=== PATIENT | female | born 1960 | race Caucasian/White ===

== ENCOUNTER 2023-06-11 04:00 | Emergency (ER) | payer MEDICARE, MEDICAID ==
[~2023-06-11] VITALS: Ht 162.6 cm; Wt 108.2 kg
[2023-06-11 04:09] VITALS: TEMP 98.2
[2023-06-11] MEDS ORDERED: Mag/Al Hydrox/Simeth Susp 30 ML CUP PO ONE (04:30)
[2023-06-11] MEDS ORDERED: Albuterol/Ipratropium 3 MG-0.5 MG/3 ML Neb Soln IH ONE (04:45)
[2023-06-11] MEDS ORDERED: diphenhydrAMINE 50 MG/ML 1 ML VIAL IV ONE (04:45)
[2023-06-11] MEDS ORDERED: Ketorolac 15 MG/ML VIAL IV ONE (04:45)
[2023-06-11 04:58] LABS: BASO % 0.4 % (0.0-2.0); EOS # 0.3 K/mm3 (0.0-0.7); EOS % 2.7 % (0.0-4.0); GRAN % 74.5 % (42.2-75.2); HEMATOCRIT 39.3 % (37.0-47.0); HEMOGLOBIN 13.1 g/dl (12.5-16.0); LYMPH # 1.2 K/mm3 (1.2-3.4); LYMPH % 12.7 % (20.0-51.0); MEAN CELL VOLUME 94 fl (80.0-100.0); MEAN CORPUSCULAR HEMOGLOBIN 31 pg (27-31); MEAN CORPUSCULAR HGB CONC 33 g/dl (33.0-37.0); MEAN PLATELET VOLUME 11.1 fl (7.4-10.4); MONO # 0.8 K/mm3 (0.1-0.6); MONO % 8.7 % (1.7-9.3); PLATELET COUNT 197 K/mm3 (130-400); RED BLOOD COUNT 4.19 M/mm3 (4.10-5.30); REDCELL DISTRIBUTION WIDTH-CV 15.5 % (11.5-14.5)
[2023-06-11 05:20] LABS: ALANINE AMINOTRANSFERASE 25 U/L (0-55); ALBUMIN 3.7 gm/dL (3.4-4.8); ALKALINE PHOSPHATASE 61 U/L (40-150); ANION GAP 11 mmol/L (7-16); AST,SGOT 20 U/L (5-34); BILIRUBIN,TOTAL 0.5 mg/dL (0.2-1.2); BLOOD UREA NITROGEN 11 mg/dL (10-20); CALCIUM 9.1 mg/dL (8.4-10.2); CARBON DIOXIDE 19 mmol/L (23-31); CHLORIDE 101 mmol/L (98-107); CREATININE, serum 0.78 mg/dL (0.57-1.11); GLUCOSE 141 mg/dL (70-99); POTASSIUM 4.3 mmol/L (3.5-4.5); SODIUM 131 mmol/L (136-145); TOTAL PROTEIN 6.7 gm/dL (6.2-8.1)
[2023-06-11 05:26] LABS: INR 1.1 (0.8-3.0); PROTHROMBIN TIME 12.1 SECONDS (9.7-12.8)
[2023-06-11 05:30] LABS: TROPONIN-I < 0.010 ng/mL (0.00-0.033)
[2023-06-11 05:31] LABS: D-DIMER < 200.00 ng/mLDDu (200-230)
[2023-06-11] MEDS ORDERED: VENTOLIN0.09 MG IH ×3 (07:02→07:09)
[2023-06-11] MEDS ORDERED: VENTOLIN0.09 MG (07:07)
[2023-06-11 07:22] VITALS: BP 142/79; PULSE 78
== END 2023-06-11 07:23 | disposition home or self-care (01) ==
LOC: COL.ER 04:00
PROVIDERS: Internal Medicine
DX: J21.0 Acute bronchiolitis due to respiratory syncytial virus (principal); R11.0 Nausea; F17.210 Nicotine dependence, cigarettes, uncomplicated
CPT/HCPCS: J1200; J1885; J2765